=== PATIENT | female | born 1950 ===

== ENCOUNTER → 2021-09-18 | Outpatient (CLI) | payer MEDICARE ==
--- NOTE | 2021-09-19 08:10 | PE ---
EXAMINATION TYPE: PET CT fusion skull to thigh DATE OF EXAM: 09/18/2021 COMPARISON: Outside chest CT July 31, 2021 HISTORY: Abnormal CT, solitary pulmonary nodule. TECHNIQUE: Following the intravenous administration of 8.43 mCi of F-18 FDG, whole body images are p erformed from the skull base to the midthigh. Images are reviewed on the computer in the coronal, ax ial, and sagittal planes. Reconstructed rotating images are created on independent workstation and r eviewed on the computer. A localization and attenuation correction CT is performed in conjunction w ith the PET scan. Blood glucose level equals 90. SCAN: Initial Scan FINDINGS: SKULL BASE AND NECK: No abnormal hypermetabolic uptake. CHEST, MEDIASTINUM, AND HILAR REGION: Background moderate underlying emphysematous changes redemonstr ated. Improved bilateral increased markings and opacities in the lower lungs but persistent but sligh tly smaller or less prominent 7 to 8 mm left basilar nodule or nodular consolidation extends from yas ge 126, this is ametabolic. No areas of abnormal hypermetabolic uptake in the left lung. ABDOMEN AND PELVIS: No abnormal hypermetabolic uptake. Normal excretion. No adrenal masses. OSSEOUS STRUCTURES: No abnormal hypermetabolic uptake. OTHER CT: Mucous retention cysts and/or polyps in the inferior aspect bilateral maxillary sinuses are present. Coronary artery callus cages seen. Tiny pericardial effusion. Osseous structures are demineralized. Mild to moderate disc space narrowing L4-L5 and L5-S1 levels. A few scattered pelvic phleboliths. IMPRESSION: Resolving/resolved bibasilar opacities. Diminished size but persistent 7 to 8 mm left bas ilar nodule or nodular consolidation is noted ametabolic. Suspect resolving postinflammatory process. Advise repeat CT in 3-6 months time to reassess.
== END | disposition home or self-care (01) ==
LOC: RADPETMAIN 14:02
PROVIDERS: ATTEND Nurse Practitioner Family
DX: R91.1 Solitary pulmonary nodule (principal)
CPT/HCPCS: 78815; A9552